=== PATIENT | male | born 1960 | race Caucasian/White ===

== ENCOUNTER 2020-12-07 02:37 | Inpatient (IN) | payer MEDICAID ==
[~2020-12-07] VITALS: Ht 177.8 cm; Wt 86.2 kg
[~2020-12-07 02:37] MED LIST: APIX5TAB MT; LEVO50TA MT
[2020-12-07] MEDS ORDERED: DEXT 5%/0.9% NACL 1,000 ML IV ONE (04:00)
[2020-12-07 04:03] LABS: BASOPHILS % 0.7 % (0.0-2.0); EOSINOPHILS % 3.9 % (0.0-5.0); HEMATOCRIT. 43.3 % (42.0-52.0); HEMOGLOBIN. 15.4 g/dL (14.0-18.0); MEAN CORPUSCULAR HEMOGLOBIN 33.1 pg (28.0-32.0); MONOCYTES % 10.4 % (2.0-8.0); PLATELET 88 x1000/uL (130-400); RED BLOOD CELL COUNT 4.66 mill/uL (4.7-6.1); RED CELL DISTRIBUTION WIDTH 13.4 % (11.6-14.6)
[2020-12-07 04:11] LABS: CHLORIDE 110 mEq/L (98-107)
[2020-12-07 04:14] LABS: ETHANOL BLOOD < 10 mg/dL
[2020-12-07 05:14] LABS: CLARITY URINE CLEAR (CLEAR); COLOR URINE YELLOW (YELLOW); KETONES URINE NEGATIVE (NEGATIVE); LEUKOCYTE ESTERASE URINE NEGATIVE (NEGATIVE); NITRITE URINE NEGATIVE (NEGATIVE); OCCULT BLOOD URINE NEGATIVE (NEGATIVE); PH URINE 6.5 (4.5-8.0); PROTEIN URINE NEGATIVE (NEGATIVE); SPECIFIC GRAVITY URINE 1.016 (1.005-1.030)
[2020-12-07 05:30] LABS: *AMPHETAMINES SCREEN URINE NEGATIVE (NEGATIVE); *BARBITURATES SCREEN URINE NEGATIVE (NEGATIVE); *BENZODIAZEPINES SCREEN URINE NEGATIVE (NEGATIVE); *COCAINE SCREEN URINE NEGATIVE (NEGATIVE); METHADONE URINE SCREEN NEGATIVE (NEGATIVE); OPIATES URINE SCREEN NEGATIVE (NEGATIVE)
[2020-12-07 05:32] LABS: CANNABINOID URINE SCREEN NEGATIVE (NEGATIVE); PHENCYCLIDINE URINE SCREEN NEGATIVE (NEGATIVE)
[2020-12-07] MEDS ORDERED: LACTULOSE 20G/30ML UDC PO ONE (05:45)
[2020-12-07] MEDS ORDERED: ONDANSETRON HCL 4MG/2ML INJ IV PRN (14:00)
[2020-12-07] MEDS ORDERED: DEXTROSE 50% WATER 50ML SYRINGE IV PRN (14:00)
[2020-12-07] MEDS ORDERED: ACETAMINOPHEN 325MG TABLET PO PRN (14:00)
[2020-12-07] MEDS ORDERED: LORAZEPAM 2MG/ML CPJ IV PRN (14:00)
[2020-12-07] MEDS: BLOOD SUGAR DIAGNOSTIC STRIP TEST SCH ×2 (16:44→21:00)
[2020-12-07] MEDS: INSULIN LISPRO 100 UNITS/ML SUBCUT SCH ×2 (17:14→21:00)
[2020-12-07] MEDS: LEVETIRACETAM 500MG TABLET PO SCH (21:00)
[2020-12-08] VITALS (9 sets, daily range): BP systolic 103–140; BP diastolic 60–90
[2020-12-08] MEDS: LEVETIRACETAM 500MG TABLET PO SCH ×2 (00:07→08:26)
[2020-12-08] MEDS ORDERED: LEVOTHYROXINE SODIUM 50MCG TABLET PO SCH (06:30)
[2020-12-08] MEDS: INSULIN LISPRO 100 UNITS/ML SUBCUT SCH ×2 (08:27→14:33)
[2020-12-08] MEDS: BLOOD SUGAR DIAGNOSTIC STRIP TEST SCH ×2 (08:28→12:30)
[2020-12-08 10:57] LABS: BASOPHILS % 0.6 % (0.0-2.0); EOSINOPHILS % 2.6 % (0.0-5.0); HEMATOCRIT. 43.5 % (42.0-52.0); HEMOGLOBIN. 15.1 g/dL (14.0-18.0); LYMPHOCYTES % 22.3 % (20.0-50.0); MEAN CORPUSCULAR HEMOGLOBIN 32.7 pg (28.0-32.0); MONOCYTES % 8.9 % (2.0-8.0); NEUTROPHILS % 65.6 % (40.0-76.0); PLATELET 91 x1000/uL (130-400); RED BLOOD CELL COUNT 4.63 mill/uL (4.7-6.1); RED CELL DISTRIBUTION WIDTH 13.4 % (11.6-14.6)
[2020-12-08 11:09] LABS: CHLORIDE 110 mEq/L (98-107)
[2020-12-08] MEDS ORDERED: LEVE750T4 PO (11:46)
[2020-12-08] MEDS ORDERED: RIFA550T PO (11:46)
[2020-12-08] MEDS ORDERED: ATOR20TA65 PO (11:46)
[2020-12-08] MEDS ORDERED: HYDR25TA PO (11:46)
[2020-12-08] MEDS ORDERED: LISI20TA31 PO (11:46)
[2020-12-08] MEDS ORDERED: ASCO-339 PO (11:46)
[2020-12-08] MEDS ORDERED: METF-414 PO (11:46)
[2020-12-08] MEDS ORDERED: LACT10SO6 PO (11:46)
[2020-12-08] MEDS ORDERED: THIA100T88 PO (11:46)
== END 2020-12-08 17:12 | disposition home or self-care (01) | DRG 53 ==
LOC: ER 02:37 → MICUSO 06:12 → 5EST 19:24
PROVIDERS: ADMIT Internal Medicine; ATTEND Internal Medicine
DX: G40.409 Other generalized epilepsy and epileptic syndromes, not intractable, without status epilepticus (principal); E72.20 Disorder of urea cycle metabolism, unspecified; E87.8 Other disorders of electrolyte and fluid balance, not elsewhere classified; E03.9 Hypothyroidism, unspecified; E11.9 Type 2 diabetes mellitus without complications; E87.6 Hypokalemia; I10 Essential (primary) hypertension; Z82.49 Family history of ischemic heart disease and other diseases of the circulatory system; Z79.01 Long term (current) use of anticoagulants; Z79.899 Other long term (current) drug therapy
CPT/HCPCS: 36415; 71045; 80048; 80053; 80305; 80320; 81003; 82140; 82542; 82962; 83605; 85025; 93005; 99285; J1815; J7042; G0480

== ENCOUNTER 2022-10-31 23:16 | Inpatient (IN) | payer BC, MEDICAID ==
[~2022-10-31] VITALS: Ht 175.3 cm; Wt 99.8 kg
[~2022-10-31 23:16] MED LIST changes: +ASCO-339 PO; +ATOR20TA65 PO; +HYDR25TA PO; +LACT10SO6 PO; +LEVE750T4 PO; +LISI20TA31 PO; +METF-414 PO; +RIFA550T PO; +THIA100T88 PO
[2022-11-01] MEDS ORDERED: SODIUM CHLORIDE 0.9% 1,000 ML IV ONE
[2022-11-01 00:46] LABS: EOSINOPHILS % 2.1 % (0.0-5.0); HEMATOCRIT. 37.1 % (42.0-52.0); HEMOGLOBIN. 13.3 g/dL (14.0-18.0); LYMPHOCYTES % 23.6 % (20.0-50.0); MEAN CORPUSCULAR HEMOGLOBIN 32.6 pg (28.0-32.0); MEAN CORPUSCULAR VOLUME 90.9 fL (80.0-94.0); MEAN PLATELET VOLUME 8.3 fl (7.4-10.4); MONOCYTES % 11.5 % (2.0-8.0); NEUTROPHILS % 61.8 % (40.0-76.0); PLATELET 117 x1000/uL (130-400); RED BLOOD CELL COUNT 4.09 mill/uL (4.7-6.1); RED CELL DISTRIBUTION WIDTH 13.4 % (11.6-14.6)
[2022-11-01 00:50] LABS: CHLORIDE 108 mEq/L (98-107)
[2022-11-01] MEDS ORDERED: POTASSIUM CHLORIDE INJ 40 MEQ in DEXT 5% WATER 250 ML IV ONE (02:00)
[2022-11-01] MEDS ORDERED: POTASSIUM CHLORIDE 20MEQ TABLET SR PO NR (02:00)
[2022-11-01] MEDS: KCL 20MEQ/100ML X 2 FOR TOTAL KCL 40MEQ/200ML IV SCH ×2 (02:39→05:40)
[2022-11-01] MEDS ORDERED: CLONIDINE 0.1MG TABLET PO PRN (12:30)
[2022-11-01] MEDS ORDERED: ONDANSETRON HCL 4MG/2ML INJ IV PRN (12:30)
[2022-11-01] MEDS ORDERED: HYDROCHLOROTHIAZIDE 25MG TABLET PO SCH (12:30)
[2022-11-01] MEDS ORDERED: LEVOTHYROXINE SODIUM 50MCG TABLET PO SCH (12:30)
[2022-11-01] MEDS ORDERED: ACETAMINOPHEN 325MG TABLET PO PRN (12:30)
[2022-11-01] MEDS: LEVETIRACETAM 500MG/5ML CUP PO SCH ×2 (13:08→21:00)
[2022-11-01] MEDS: THIAMINE HCL 100MG TABLET PO SCH (13:08)
[2022-11-01] MEDS: SODIUM CHLORIDE 0.9% 1,000 ML IV SCH (13:09)
[2022-11-01] MEDS: LISINOPRIL 20MG TABLET PO SCH (13:09)
[2022-11-01] MEDS ORDERED: POTASSIUM CHLORIDE 20MEQ/PACKET PO NR (13:15)
[2022-11-01] MEDS ORDERED: MAGNESIUM 1 G PREMIX 100 ML IV NR (13:15)
[2022-11-01] MEDS: APIXABAN 5 MG TABLET PO SCH ×2 (14:15→22:28)
[2022-11-01 20:00] VITALS: BP 98/69; PULSE 56; RESP 20; TEMP 98.5
[2022-11-01] MEDS: ATORVASTATIN CALCIUM 20MG TABLET PO SCH (21:52)
[2022-11-01] MEDS: LACTULOSE 20G/30ML UDC PO SCH (21:52)
[2022-11-01] MEDS: RIFAXIMIN 550 MG TABLET PO SCH (21:53)
[2022-11-01 22:00] VITALS: BP 98/69; PULSE 56; RESP 20; TEMP 98.5
[2022-11-01] MEDS ORDERED: DEXTROSE 50% WATER 50ML SYRINGE IV PRN (23:30)
[2022-11-02] VITALS: BP 111/64; PULSE 51; RESP 20; TEMP 97.9
[2022-11-02] MEDS: SODIUM CHLORIDE 0.9% 1,000 ML IV SCH ×2 (02:45→14:18)
[2022-11-02 04:00] VITALS: BP 117/82; PULSE 56; RESP 20; TEMP 97.5
[2022-11-02] MEDS: LACTULOSE 20G/30ML UDC PO SCH ×3 (05:58→21:20)
[2022-11-02] MEDS: INSULIN LISPRO 100 UNITS/ML SUBCUT SCH ×4 (06:38→21:00)
[2022-11-02] MEDS: BLOOD SUGAR DIAGNOSTIC STRIP TEST SCH ×4 (06:38→21:21)
[2022-11-02 07:30] LABS: CLARITY URINE CLEAR (CLEAR); COLOR URINE YELLOW (YELLOW); KETONES URINE NEGATIVE (NEGATIVE); LEUKOCYTE ESTERASE URINE NEGATIVE (NEGATIVE); NITRITE URINE NEGATIVE (NEGATIVE); OCCULT BLOOD URINE NEGATIVE (NEGATIVE); PROTEIN URINE NEGATIVE (NEGATIVE); UROBILINOGEN URINE 0.2 E.U./dL (0.2-1.0)
[2022-11-02 07:41] LABS: CHLORIDE 118 mEq/L (98-107)
[2022-11-02 07:43] LABS: BASOPHILS % 0.9 % (0.0-2.0); EOSINOPHILS % 2.8 % (0.0-5.0); HEMATOCRIT. 36.7 % (42.0-52.0); LYMPHOCYTES % 27.5 % (20.0-50.0); MEAN CORPUSCULAR HEMOGLOBIN 32.6 pg (28.0-32.0); MEAN CORPUSCULAR VOLUME 92.2 fL (80.0-94.0); MEAN PLATELET VOLUME 8.5 fl (7.4-10.4); MONOCYTES % 14.7 % (2.0-8.0); NEUTROPHILS % 54.1 % (40.0-76.0); PLATELET 119 x1000/uL (130-400); RED BLOOD CELL COUNT 3.98 mill/uL (4.7-6.1)
[2022-11-02 07:59] LABS: *AMPHETAMINES SCREEN URINE NEGATIVE (NEGATIVE); *BARBITURATES SCREEN URINE NEGATIVE (NEGATIVE); *BENZODIAZEPINES SCREEN URINE PRESUMTIVE POSITIVE (NEGATIVE); *COCAINE SCREEN URINE NEGATIVE (NEGATIVE); CANNABINOID URINE SCREEN NEGATIVE (NEGATIVE); METHADONE URINE SCREEN NEGATIVE (NEGATIVE); OPIATES URINE SCREEN NEGATIVE (NEGATIVE); PHENCYCLIDINE URINE SCREEN NEGATIVE (NEGATIVE)
[2022-11-02 08:00] VITALS: BP 132/70; PULSE 52; RESP 20; TEMP 98.6
[2022-11-02] MEDS ORDERED: POTASSIUM CHLORIDE 20MEQ/PACKET PO NR (10:30)
[2022-11-02] MEDS: APIXABAN 5 MG TABLET PO SCH ×2 (10:37→18:07)
[2022-11-02] MEDS: RIFAXIMIN 550 MG TABLET PO SCH ×2 (10:37→18:07)
[2022-11-02] MEDS: LEVOTHYROXINE SODIUM 100MCG TABLET PO SCH (10:37)
[2022-11-02] MEDS: THIAMINE HCL 100MG TABLET PO SCH (10:37)
[2022-11-02] MEDS: LISINOPRIL 20MG TABLET PO SCH (10:38)
[2022-11-02] MEDS: LEVETIRACETAM 500MG/5ML CUP PO SCH ×2 (10:38→21:20)
[2022-11-02 12:00] VITALS: BP_SYST 141; PULSE 55; RESP 20; TEMP 97.8
[2022-11-02 16:42] VITALS: BP 116/70; PULSE 60; RESP 20; TEMP 97.8
[2022-11-02 20:00] VITALS: BP 102/48; PULSE 57; RESP 18; TEMP 98.1
[2022-11-02] MEDS: ATORVASTATIN CALCIUM 20MG TABLET PO SCH (21:20)
[2022-11-03] VITALS: BP 98/55; PULSE 47; RESP 18; TEMP 97.5
[2022-11-03 04:00] VITALS: BP 109/64; PULSE 55; RESP 18; TEMP 97.2
[2022-11-03] MEDS: SODIUM CHLORIDE 0.9% 1,000 ML IV SCH (04:30)
[2022-11-03] MEDS: LEVOTHYROXINE SODIUM 100MCG TABLET PO SCH (06:25)
[2022-11-03] MEDS: LACTULOSE 20G/30ML UDC PO SCH (06:25)
[2022-11-03] MEDS: BLOOD SUGAR DIAGNOSTIC STRIP TEST SCH (06:26)
[2022-11-03 08:00] VITALS: BP 125/78; PULSE 53; RESP 20; TEMP 97.9
[2022-11-03] MEDS: INSULIN LISPRO 100 UNITS/ML SUBCUT SCH (08:02)
[2022-11-03] MEDS ORDERED: LEVO100T9 MT (10:07)
[2022-11-03] MEDS: APIXABAN 5 MG TABLET PO SCH (10:18)
[2022-11-03] MEDS: THIAMINE HCL 100MG TABLET PO SCH (10:18)
[2022-11-03] MEDS: LISINOPRIL 20MG TABLET PO SCH (10:18)
[2022-11-03] MEDS: RIFAXIMIN 550 MG TABLET PO SCH (10:18)
[2022-11-03] MEDS: LEVETIRACETAM 500MG/5ML CUP PO SCH (10:19)
[2022-11-03 11:02] VITALS: BP 125/78; PULSE 51; TEMP 98.1; O2SAT 96
[2022-11-03 11:34] LABS: EOSINOPHILS % 2.5 % (0.0-5.0); HEMATOCRIT. 36.3 % (42.0-52.0); HEMOGLOBIN. 12.6 g/dL (14.0-18.0); LYMPHOCYTES % 23.6 % (20.0-50.0); MEAN CORPUSCULAR HEMOGLOBIN 31.9 pg (28.0-32.0); MEAN CORPUSCULAR VOLUME 91.9 fL (80.0-94.0); MEAN PLATELET VOLUME 8.2 fl (7.4-10.4); MONOCYTES % 11.4 % (2.0-8.0); NEUTROPHILS % 61.5 % (40.0-76.0); PLATELET 112 x1000/uL (130-400); RED BLOOD CELL COUNT 3.95 mill/uL (4.7-6.1); RED CELL DISTRIBUTION WIDTH 13.6 % (11.6-14.6)
[2022-11-03 12:00] VITALS: BP 118/79; PULSE 51; RESP 20; TEMP 98.1
[2022-11-03 14:13] LABS: CHLORIDE 113 mEq/L (98-107)
== END 2022-11-03 12:50 | disposition home or self-care (01) | DRG 101 ==
LOC: ER 23:16 → 7WST 11-01 18:55
PROVIDERS: ADMIT Internal Medicine; ATTEND Internal Medicine
DX: G40.909 Epilepsy, unspecified, not intractable, without status epilepticus (principal); I42.9 Cardiomyopathy, unspecified; I50.9 Heart failure, unspecified; I11.0 Hypertensive heart disease with heart failure; K70.30 Alcoholic cirrhosis of liver without ascites; E03.9 Hypothyroidism, unspecified; E11.9 Type 2 diabetes mellitus without complications; E83.42 Hypomagnesemia; I48.91 Unspecified atrial fibrillation; E87.6 Hypokalemia; Z79.01 Long term (current) use of anticoagulants; Z82.49 Family history of ischemic heart disease and other diseases of the circulatory system; Z79.899 Other long term (current) drug therapy
CPT/HCPCS: 36415; 80048; 80053; 80162; 80305; 81003; 82962; 83036; 83735; 84443; 84484; 85025; 93005; 93306; 99285; C1893; J3475; J3480; J7030

== ENCOUNTER 2022-12-28 14:45 | Emergency (ER) | payer MEDICAID ==
[~2022-12-28] VITALS: Ht 165.1 cm; Wt 91.0 kg
[~2022-12-28 14:45] MED LIST changes: +LEVO100T9 MT; -LEVO50TA MT
[2022-12-28 14:50] VITALS: O2SAT 97
[2022-12-28] MEDS ORDERED: SODIUM CHLORIDE 0.9% 1,000 ML IV ONE (15:00)
[2022-12-28 15:22] LABS: BASOPHILS % 0.8 % (0.0-2.0); DIFFERENTIAL COMMENT 0; HEMATOCRIT. 38.9 % (42.0-52.0); HEMOGLOBIN. 13.1 g/dL (14.0-18.0); LYMPHOCYTES % 29.5 % (20.0-50.0); MEAN CORPUSCULAR HEMOGLOBIN 30.8 pg (28.0-32.0); MEAN CORPUSCULAR HGB CONC 33.7 g/dL (31.0-37.0); MEAN CORPUSCULAR VOLUME 91.2 fL (80.0-94.0); MEAN PLATELET VOLUME 8.4 fl (7.4-10.4); MONOCYTES % 11.5 % (2.0-8.0); NEUTROPHILS % 56.2 % (40.0-76.0); PLATELET 113 x1000/uL (130-400); RED BLOOD CELL COUNT 4.27 mill/uL (4.7-6.1); RED CELL DISTRIBUTION WIDTH 15.1 % (11.6-14.6); WHITE BLOOD COUNT 5.6 x1000/uL (4.5-11.0)
[2022-12-28 15:32] LABS: CHLORIDE 110 mEq/L (98-107); INDEX HEMOLYSI 1 (1-3); INDEX ICTERIC 1 (1-4); INDEX LIPEMIC 1 (1-3); POTASSIUM 3.8 mEq/L (3.5-5.1); SODIUM 138 mEq/L (136-145)
[2022-12-28] MEDS ORDERED: LEVETIRACETAM 500MG PREMIX 100 ML IV ONE (15:45)
[2022-12-28 15:51] LABS: ALANINE AMINOTRANSFERASE 23 IU/L (13-61); ALBUMIN 3.5 g/dL (3.4-5.0); ASPARTATE AMINOTRANSFERASE 16 IU/L (15-37); BILIRUBIN TOTAL 0.9 mg/dL (0.1-1.0); CALCIUM 8.7 mg/dL (8.5-10.1); CARBON DIOXIDE 27 mEq/L (21-32); CREATININE 1.2 mg/dL (0.6-1.3); GLUCOSE 106 mg/dL (70-105); NT PRO B-TYPE NATRIURETIC PEP 395 pg/mL (5-125); PROTEIN TOTAL 6.1 g/dL (6.0-8.3); TROPONIN I HIGH SENSITIVITY 12 ng/L (<78); UREA NITROGEN BLOOD 11 mg/dL (7-21)
[2022-12-28 16:26] LABS: TROPONIN I HIGH SENSITIVITY 12 ng/L (<78)
[2022-12-28 17:31] LABS: CLARITY URINE CLEAR (CLEAR); COLOR URINE YELLOW (YELLOW); GLUCOSE URINE NEGATIVE (NEGATIVE); KETONES URINE NEGATIVE (NEGATIVE); LEUKOCYTE ESTERASE URINE NEGATIVE (NEGATIVE); NITRITE URINE NEGATIVE (NEGATIVE); OCCULT BLOOD URINE NEGATIVE (NEGATIVE); PROTEIN URINE NEGATIVE (NEGATIVE); SPECIFIC GRAVITY URINE 1.007 (1.005-1.030)
[2022-12-28 18:16] LABS: TROPONIN I HIGH SENSITIVITY 13 ng/L (<78)
[2022-12-29 01:15] VITALS: BP 127/78; PULSE 52; RESP 16; TEMP 98.2
== END 2022-12-29 01:15 | disposition short-term general hospital (02) ==
LOC: ER 14:45
DX: I48.91 Unspecified atrial fibrillation (principal); R56.9 Unspecified convulsions; E11.9 Type 2 diabetes mellitus without complications; I10 Essential (primary) hypertension
CPT/HCPCS: 99285; 96365; 71045; 96361; 80053; 81003; 83880; 84443; 85025; 84484; 93005; 36415; J1953